=== PATIENT | male | born 1980 | race African-American/Black ===

== ENCOUNTER 2017-03-18 22:12 | Emergency (ER) | payer SELFPAY ==
[2017-03-18 22:34] VITALS: BP 132/62
[2017-03-18] MEDS ORDERED: ALBUTEROL SULFATE HFA (90 MCG/PUFF) 8 GM MDI (1 MDI/ER DISP) IH PRN (23:56)
--- NOTE | 2017-03-19 00:01 | ER Document Report ---
HPI - HPI Pain Level: Denies Notes: Patient is a 36-year-old male who presents ED complaining of nasal congestion/ discharge, occasional sore throat, dry nonproductive cough, occasional wheezing 3 days. Patient states that he is still eating and drinking without difficulties. He still urinating normally and having normal bowel movements. Patient does admit to smoking but denies IV drug use. Patient states that he is ambulatory without any trouble breathing. He has not noticed any trouble swallowing, hoarseness, or drooling. Denies any headache, fever, neck pain, chest pain, palpitations, syncope, shortness of breath, wheeze, dyspnea, abdominal pain, nausea/vomiting/diarrhea, dysuria, hematuria, or rash. - ROS Notes: REVIEW OF SYSTEMS: CONSTITUTIONAL : Denies fever, chills, or sweats. Denies recent illness. EENT: see HPI CARDIOVASCULAR: Denies chest pain. Denies palpitations or racing or irregular heart beat. Denies ankle edema. RESPIRATORY: See HPI. denies shortness of breath, difficulty breathing, or wheezing. GASTROINTESTINAL: Denies abdominal pain or distention. Denies nausea, vomiting , or diarrhea. GENITOURINARY: Denies difficulty urinating, painful urination, burning, frequency, blood in urine, or discharge. MUSCULOSKELETAL: Denies back or neck pain or stiffness. Denies joint pain or swelling. SKIN: Denies rash, lesions or sores. NEUROLOGICAL: Denies confusion or altered mental status. Denies passing out or loss of consciousness. Denies dizziness or lightheadedness. Denies headache. Denies problems with gait or speech. ALL OTHER SYSTEMS REVIEWED AND NEGATIVE. Dictation was performed using [employer] voice recognition software Past Medical History - Social History Smoking Status: Current Every Day Smoker Chew tobacco use (# tins/day): No Frequency of alcohol use: None Drug Abuse: None Family History: Reviewed & Not Pertinent Patient has suicidal ideation: No Patient has homicidal ideation: No Renal/ Medical History: Denies: Hx Peritoneal Dialysis Vertical Provider Document - CONSTITUTIONAL Agree With Documented VS: Yes Notes: PHYSICAL EXAMINATION: GENERAL: Well-appearing, well-nourished and in no acute distress. HEAD: Atraumatic, normocephalic. EYES: Pupils equal round and reactive to light, extraocular movements intact, sclera anicteric, conjunctiva are normal. ENT: EAC clear b/l. TM's intact b/l without erythema, fluid, or perforation. Nares patent and with clear discharge. oropharynx clear without exudates. No tonsilar hypertrophy or erythema. Moist mucous membranes. No sinus tenderness. NECK: Normal range of motion, supple without lymphadenopathy. no rigidity/ meningismus LUNGS: scant wheeze on the left side. no crackles. HEART: Regular rate and rhythm without murmurs, rubs, gallops. ABDOMEN: Soft, nontender, nondistended abdomen. No guarding, no rebound. No masses appreciated. Normal bowel sounds present. No CVA tenderness bilaterally. Extremities: No cyanosis, clubbing, or edema b/l. Peripheral pulses 2+. Capillary refill less than 3 seconds. NEUROLOGICAL: Normal speech, normal gait. Normal sensory, motor exams PSYCH: Normal mood, normal affect. SKIN: Warm, Dry, normal turgor, no rashes or lesions noted. - INFECTION CONTROL TRAVEL OUTSIDE OF THE [place] IN LAST 30 DAYS: No - RESPIRATORY O2 Sat by Pulse Oximetry: 97 Course - Re-evaluation Re-evalutation: 03/19/17 01:08 Patient is an afebrile, well-hydrated, 36-year-old male who presents the ED with acute URI, suspect viral at this time. Vitals are stable. PE is otherwise unremarkable. No imaging warranted at this time based on H&P. Low suspicion for any sepsis, meningitis, ACS, PE, pneumothorax, pericarditis, dissection, airway compromise, or other systemic emergent conditions. Patient aware that condition can change from initial presentation and he needs to monitor symptoms closely and seek medical attention if any acute changes. An albuterol inhaler was dispensed to him today. I will send him home with a prescription for Tessalon Perles. Conservative measures for symptoms otherwise. Recheck with your PCM in 3-5 days. Return to the ED with any worsening/concerning symptoms otherwise as reviewed in discharge. Patient is in agreement. - Vital Signs Vital signs: Temp Pulse Resp BP Pulse Ox 98.9 F 93 18 132/62 H 97 03/18/17 22:13 03/18/17 22:13 03/18/17 22:13 03/18/17 22:13 03/18/17 22:13 Discharge - Discharge Clinical Impression: Acute URI Condition: Stable Disposition: HOME, SELF-CARE Instructions: Bronchodilators ([facility]), Tessalon Perles ([facility]), Upper Respiratory Illness ([facility]) Additional Instructions: Maintain adequate fluid intake Take meds as directed tylenol/ibuprofen as needed over the counter cold medication as needed for symptoms Humidified air may help F/u: with your PCM in 3-5 days for a recheck Return to the ED with any fever, worsening pain, chest pain, palpitations, syncope, worsening PRYOR, neck pain/stiffness, shortness of breath, wheezing, drooling, trouble swallowing/breathing, abdominal pain, n/v/d, rash, or worsening/concerning symptoms otherwise. Prescriptions: Benzonatate [Tessalon Perle 100 mg Capsule] 100 mg PO Q8HP PRN #15 cap PRN Reason: Forms: Elevated Blood Pressure Referrals: [facility] [Provider Group] - Follow up as needed [facility] [Provider Group] - Follow up as needed
== END 2017-03-19 00:12 | disposition home or self-care (01) ==
LOC: ER 22:12
DX: J02.9 Acute pharyngitis, unspecified (principal); R05 Cough; J34.89 Other specified disorders of nose and nasal sinuses; R06.2 Wheezing; F17.200 Nicotine dependence, unspecified, uncomplicated
CPT/HCPCS: 99283; J3490

== ENCOUNTER 2017-04-09 11:49 | Emergency (ER) | payer SELFPAY ==
[2017-04-09 11:55] VITALS: BP 130/76
--- NOTE | 2017-04-09 12:28 | ER Document Report ---
ED General - General Chief Complaint: Abscess Stated Complaint: POSSIBLE ABCESS Time Seen by Provider: 04/09/17 12:26 Mode of Arrival: Ambulatory Information source: Patient Notes: Patient is a 36 year old male who presents with "bump" to his anterior chest that started 3-4 days ago. He denies any fever, chills, redness, drainage or bleeding from area. Does endorse mild swelling. He has not taken anything for pain. He denies any history of MRSA. Otherwise doing well. TRAVEL OUTSIDE OF THE [place] IN LAST 30 DAYS: No - Related Data Allergies/Adverse Reactions: No Known Allergies Allergy (Verified 04/09/17 11:52) Past Medical History - General Information source: Patient - Social History Smoking Status: Current Every Day Smoker Family History: Reviewed & Not Pertinent Renal/ Medical History: Denies: Hx Peritoneal Dialysis Review of Systems - Review of Systems Constitutional: See HPI EENT: No symptoms reported Cardiovascular: No symptoms reported Respiratory: No symptoms reported Gastrointestinal: No symptoms reported Genitourinary: No symptoms reported Male Genitourinary: No symptoms reported Musculoskeletal: No symptoms reported Skin: See HPI Hematologic/Lymphatic: No symptoms reported Neurological/Psychological: No symptoms reported Physical Exam - Vital signs Vitals: Temp Pulse Resp BP Pulse Ox 98.4 F 75 16 130/76 H 100 04/09/17 11:55 04/09/17 11:55 04/09/17 11:55 04/09/17 11:55 04/09/17 11:55 - Notes Notes: PHYSICAL EXAM: CONSTITUTIONAL: Alert and oriented, well-appearing and in no acute distress. Non -toxic in appearance. HENT: Normocephalic, atraumatic. Ear canals without erythema or foreign body, Trachea midline. Uvula midline. Moist mucous membranes. EYES: Pupils equal round and reactive to light, EOM intact. Sclera anicteric, conjunctiva are normal. No entrapment. NECK: supple without lymphadenopathy. No midline tenderness or paraspinous muscle spasms. No step-offs or deformities. ROM intact. HEART: Regular rate and rhythm without murmurs. LUNGS: CTAB and equal. No wheezes, rales or rhonchi. EXTREMITIES: Normal range of motion, no pitting edema. No cyanosis. Cap Refill < 3 seconds. NEURO: Cranial nerves grossly intact. Normal sensory/motor exams. PSYCH: Normal mood, normal affect. SKIN: Warm and dry. Normal turgor. No rashes or lesions noted. epidermoid cyst with visible central punctum to anterior chest wall with minimal surrounding edema, no erythema, drainage or bleeding noted. Course - Re-evaluation Re-evalutation: 04/09/17 12:27 Patient seen and examined. Non-toxic in appearance, speaking in full sentences without difficulty. Very well appearing. Exam consistent with epidermoid cyst with visible central punctum; no evidence of abscess or cellulitis. Will treat with supportive measures, given return precautions. Low suspicion for sepsis or other emergent medical conditions at this time. At this time, will discharge with return precautions and follow-up recommendations. Verbal discharge instructions given at the bedside and opportunity for questions given. Medication warnings reviewed. Patient is in agreement with this plan and has verbalized understanding of return precautions and the need for primary care follow-up in the next 24-72 hours. - Vital Signs Vital signs: Temp Pulse Resp BP Pulse Ox 98.4 F 75 16 130/76 H 100 04/09/17 11:55 04/09/17 11:55 04/09/17 11:55 04/09/17 11:55 04/09/17 11:55 Discharge - Discharge Clinical Impression: Epidermoid cyst Condition: Stable Disposition: HOME, SELF-CARE Additional Instructions: You have been diagnosed with epidermoid or sebaceous cyst. It does not appear to be inflammed or infected but you have been given short course of antibiotics. Take as directed. You can follow-up with your primary care doctor and if it continues to bother you, obtain referral to dermatology for removal. Prescriptions: Sulfamethoxazole/Trimethoprim [Bactrim Ds Tablet] 1 tab PO BID 7 Days tablet Forms: Elevated Blood Pressure
== END 2017-04-09 14:30 | disposition home or self-care (01) ==
LOC: ER 11:49
DX: L72.0 Epidermal cyst (principal); F17.200 Nicotine dependence, unspecified, uncomplicated
CPT/HCPCS: 99282

== ENCOUNTER 2017-09-10 21:26 | Emergency (ER) | payer SELFPAY ==
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
[2017-09-10] MEDS ORDERED: HYDROCODONE/ACETAMINOPHEN 5-325 MG (6 TAB/ER DISP) PO PRN (23:00)
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
[2017-09-10 23:45] VITALS: BP 114/74
== END 2017-09-10 23:45 | disposition home or self-care (01) ==
LOC: ER 21:26
DX: S62.324A Displaced fracture of shaft of fourth metacarpal bone, right hand, initial encounter for closed fracture (principal); W22.01XA Walked into wall, initial encounter
CPT/HCPCS: 99283

== ENCOUNTER 2017-09-23 09:24 | Day surgery (SDC) | payer SELFPAY ==
[2017-09-23] MEDS ORDERED: CEFAZOLIN 2 GM/D5W RTU 2 GM/50 ML RTUPB IV PRN (09:59)
[2017-09-23] MEDS ORDERED: MIDAZOLAM 2 MG/2 ML INJ ONE (11:42)
[2017-09-23] MEDS ORDERED: FENTANYL CITRATE INJ/PF 100 MCG/2 ML AMPUL ONE (11:42)
[2017-09-23] MEDS ORDERED: MORPHINE SULFATE 10 MG/ML INJ ONE ×2 (11:43→13:50)
[2017-09-23] MEDS ORDERED: ONDANSETRON HCL INJ/PF 4 MG/2 ML SDV ONE (11:43)
[2017-09-23] MEDS ORDERED: PROPOFOL INJ 200 MG/20 ML VIAL IV ONE (11:43)
[2017-09-23] MEDS ORDERED: PROMETHAZINE HCL INJ 25 MG/1 ML VIAL IV PRN (12:26)
[2017-09-23] MEDS ORDERED: MEPERIDINE HCL/PF INJ 25 MG/1 ML DISP.SYRIN IV PRN (12:26)
[2017-09-23] MEDS ORDERED: FENTANYL CITRATE INJ/PF 100 MCG/2 ML AMPUL IV PRN ×3 (12:26)
[2017-09-23] MEDS ORDERED: DIPHENHYDRAMINE HCL 50 MG/ML VIAL IV PRN (12:26)
--- NOTE | 2017-09-23 12:40 | Operative Report ---
Operative Report DATE OF SURGERY: 09/23/17 PREOPERATIVE DIAGNOSIS: Right fourth metacarpal fracture OPERATION: Open reduction internal fixation right fourth metacarpal fracture SURGEON: RENATE DEVRIES ANESTHESIA: GA ESTIMATED BLOOD LOSS: 25 cc PROCEDURE: With the patient supine Afrin table the right upper extremities prepped and draped in sterile fashion. A longitudinal incision is made over the dorsum of the right fourth metacarpal and sharp dissection was used to expose the underlying fracture. A Haresh titanium 2.3 mm 5 hole plate is applied to the dorsum of the metacarpal spanning the fracture. It secured with 2 screws distally and 2 screws proximally. Is checked fluoroscopically. Fracture is reduced anatomically. Hardware position is appropriate. This point the tourniquet is deflated. Hemostasis obtained with bipolar cautery. The wound is irrigated. Is closed in layers using interrupted Vicryl followed by Monocryl pill. Sterile dressings applied and the patient's return to PACU in satisfactory condition.
[2017-09-23] MEDS: FENTANYL CITRATE INJ/PF 100 MCG/2 ML AMPUL ONE ×2 (13:18→13:23)
[2017-09-23] MEDS ORDERED: KETOROLAC TROMETHAMINE INJ/PF 30 MG/1 ML SDV ONE (13:50)
--- NOTE | 2017-09-23 14:01 | RADIOLOGY REPORT (SQ) ---
EXAM DESCRIPTION: NO CHG FLUORO; HAND RIGHT 2 VIEWS COMPLETED DATE/TIME: 09/23/2017 1:53 pm REASON FOR STUDY: ORIF RT 4TH METACARPAL ASST WITH FLUORO IN OR S62.324A DISP FX OF SHAFT OF FOURTH METACARPAL BONE, RIGHT H COMPARISON: 09/10/2017. FLUOROSCOPY TIME: 7 seconds. 3 images saved to PACS. TECHNIQUE: Intra-operative images acquired during surgical procedure to evaluate progress. NUMBER OF IMAGES: 3 images. LIMITATIONS: None. FINDINGS: Images of the hand acquired during surgical fixation of the fracture of the 4th metacarpal . IMPRESSION: IMAGE(S) OBTAINED DURING PROCEDURE. COMMENT: Quality ID 145: Final reports for procedures using fluoroscopy that document radiation exp osure indices, or exposure time and number of fluorographic images (if radiation exposure indices are not available) Please consult full operative report of the attending physician for description of the procedure. TECHNICAL DOCUMENTATION: JOB ID: [id number] [employer]- All Rights Reserved Reading location - IP/workstation name: [email or web address]
--- NOTE | 2017-09-23 14:01 | RADIOLOGY REPORT (SQ) ---
EXAM DESCRIPTION: NO CHG FLUORO; HAND RIGHT 2 VIEWS COMPLETED DATE/TIME: 09/23/2017 1:53 pm REASON FOR STUDY: ORIF RT 4TH METACARPAL ASST WITH FLUORO IN OR S62.324A DISP FX OF SHAFT OF FOURTH METACARPAL BONE, RIGHT H COMPARISON: 09/10/2017. FLUOROSCOPY TIME: 7 seconds. 3 images saved to PACS. TECHNIQUE: Intra-operative images acquired during surgical procedure to evaluate progress. NUMBER OF IMAGES: 3 images. LIMITATIONS: None. FINDINGS: Images of the hand acquired during surgical fixation of the fracture of the 4th metacarpal . IMPRESSION: IMAGE(S) OBTAINED DURING PROCEDURE. COMMENT: Quality ID 145: Final reports for procedures using fluoroscopy that document radiation exp osure indices, or exposure time and number of fluorographic images (if radiation exposure indices are not available) Please consult full operative report of the attending physician for description of the procedure. TECHNICAL DOCUMENTATION: JOB ID: [id number] [employer]- All Rights Reserved Reading location - IP/workstation name: [email or web address]
[2017-09-23] MEDS ORDERED: ONDANSETRON 4 MG TAB.RAPDIS SL PRN (14:13)
[2017-09-23] MEDS ORDERED: OXYCODONE-ACETAMINOPHEN 5-325 MG TABLET PO PRN (14:13)
[2017-09-23 16:06] VITALS: BP 130/77
[2017-09-23] MEDS ORDERED: DEXAMETHASONE SOD PHOSPHATE INJ 4 MG/1 ML VIAL ONE (20:41)
[2017-09-23] MEDS ORDERED: LIDOCAINE 2% INJ-PF (20 MG/ML) 2 ML AMPUL ONE (20:41)
[2017-09-23] MEDS ORDERED: GLYCOPYRROLATE INJ 0.4 MG/2 ML VIAL ONE (20:41)
== END 2017-09-23 15:30 | disposition home or self-care (01) ==
LOC: OROUT 09:24
PROVIDERS: ATTEND Orthopaedic Surgery
DX: S62.324A Displaced fracture of shaft of fourth metacarpal bone, right hand, initial encounter for closed fracture (principal); X58.XXXA Exposure to other specified factors, initial encounter; F17.210 Nicotine dependence, cigarettes, uncomplicated; R01.1 Cardiac murmur, unspecified
CPT/HCPCS: 26615; 73120; J2250; J1100; J3010; J1885; J2270; J2405; J2704; J0690; J3490; 01830

== ENCOUNTER 2017-10-04 18:30 | Emergency (ER) | payer OTHER ==
[2017-10-04 18:42] VITALS: BP 120/89
[2017-10-04] MEDS ORDERED: IBUPROFEN 800 MG TABLET PO ONE (19:16)
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
== END 2017-10-04 20:00 | disposition home or self-care (01) ==
LOC: ER 18:30
DX: M54.6 Pain in thoracic spine (principal); M54.5 Low back pain; M79.89 Other specified soft tissue disorders; F17.210 Nicotine dependence, cigarettes, uncomplicated; V89.2XXA Person injured in unspecified motor-vehicle accident, traffic, initial encounter; Y99.9 Unspecified external cause status; I10 Essential (primary) hypertension
CPT/HCPCS: 72070; 72110; 99283; 99406

== ENCOUNTER 2018-12-26 16:54 | Emergency (ER) | payer OTHER ==
[2018-12-26] MEDS ORDERED: PSEUDOEPHEDRINE HCL 30 MG TABLET PO ONE (17:59)
[2018-12-26] MEDS ORDERED: LORATADINE 10 MG TABLET PO ONE (17:59)
[2018-12-26] MEDS ORDERED: GUAIFENESIN 600 MG TABLET.SA PO ONE (18:00)
--- NOTE | 2018-12-26 18:02 | ER Document Report ---
HPI - HPI Patient complains to provider of: cough congestion Time Seen by Provider: 12/26/18 17:56 Onset: Other Onset/Duration: Intermittent Quality of pain: Achy Pain Level: 2 Associated Symptoms: Nonproductive cough, Sinus pain/drainage, Shortness of breath, Sore throat Exacerbated by: Coughing Relieved by: Denies Similar symptoms previously: Yes Recently seen / treated by doctor: No - ROS ROS below otherwise negative: Yes - CONSTITUTIONAL Constitutional: DENIES: Fever, Chills - EENT EENT: REPORTS: Sore Throat, Nasal Drainage-Purulent - NEURO Neurology: REPORTS: Headache. DENIES: Weakness, Vision blurred, Dizzinesss / Vertigo - CARDIOVASCULAR Cardiovascular: DENIES: Chest pain - RESPIRATORY Respiratory: REPORTS: Coughing - GASTROINTESTINAL Gastrointestinal: DENIES: Abdominal Pain, Nausea, Patient vomiting, Diarrhea, Constipation, Black / Bloody Stools - URINARY Urinary: DENIES: Dysuria, Urgency, Frequency - REPRODUCTIVE Reproductive: DENIES: :, Postmenopausal, Abnormal bleeding / discharge - MUSCULOSKELETAL Musculoskeletal: DENIES: Extremity pain, Back Pain, Neck Pain, Swelling - DERM Skin Color: Normal Skin Problems: None Past Medical History - General Information source: Patient - Social History Smoking Status: Current Every Day Smoker Cigarette use (# per day): Yes - 25 cigarettes a day Smoking Education Provided: Yes - 4 minutes Frequency of alcohol use: Occasional Drug Abuse: Marijuana Occupation: [employer] Lives with: Family - Aunt Family History: Reviewed & Not Pertinent Patient has suicidal ideation: No Patient has homicidal ideation: No - Past Medical History Cardiac Medical History: Reports: Hx Heart Murmur - Repaired as a baby Pulmonary Medical History: Reports: None EENT Medical History: Reports: None Neurological Medical History: Reports: None Endocrine Medical History: Reports: None Renal/ Medical History: Reports: None Malignancy Medical History: Reports None GI Medical History: Reports: None Musculoskeletal Medical History: Reports Hx Musculoskeletal Trauma Skin Medical History: Reports None Psychiatric Medical History: Reports: None Traumatic Medical History: Reports: Hx Fractures - right hand Infectious Medical History: Reports: None Past Surgical History: Reports: Hx Cardiac Surgery - as child, Hx Orthopedic Surgery - right hand fx - Immunizations Immunizations up to date: Yes Hx Diphtheria, Pertussis, Tetanus Vaccination: Yes Vertical Provider Document - CONSTITUTIONAL Agree With Documented VS: Yes Exam Limitations: No Limitations General Appearance: WD/WN, No Apparent Distress - INFECTION CONTROL TRAVEL OUTSIDE OF THE [place] IN LAST 30 DAYS: No - HEENT HEENT: Atraumatic, Normocephalic, PERRLA Notes: Purulent nasal drainage, swollen and erythematous nasal turbinates, cobblestoning erythema to the oropharynx. Assessment consistent with an upper respiratory infection - NECK Neck: Normal Inspection, Supple - RESPIRATORY Respiratory: Breath Sounds Normal, No Respiratory Distress. negative: Chest Non-Tender, Rales, Rhonchi, Wheezing - CARDIOVASCULAR Cardiovascular: Regular Rate, Regular Rhythm, No Murmur - GI/ABDOMEN Gastrointestinal: Abdomen Soft, Abdomen Non-Tender, No Organomegaly, Normal Bowel Sounds - BACK Back: Normal Inspection - MUSCULOSKELETAL/EXTREMETIES Musculoskeletal/Extremeties: MAEW, FROM, Non-Tender - NEURO Level of Consciousness: Awake, Alert, Appropriate Motor/Sensory: No Motor Deficit, No Sensory Deficit, No Pronator Drift Deep Tendon Reflexes: 2+ - DERM Integumentary: Warm, Dry, No Rash Course - Re-evaluation Re-evalutation: 12/26/18 19:36 Discussed x-ray with patient and written report of x-ray given to patient. Patient was instructed to follow-up with a surgery nurse for the enlarged heart. There is no symptoms of CHF. There is no fluid in the lungs. He does have a cold and day after I gave him the instructions about the enlarged heart he did become very anxious when we rechecked his blood pressure was elevated. He has been told not to use Sudafed and Mucinex until he follows up with a surgery nurse. - Vital Signs Vital signs: Temp Pulse Resp BP Pulse Ox 98.7 F 80 18 120/72 96 12/26/18 17:01 12/26/18 17:01 12/26/18 17:01 12/26/18 17:01 12/26/18 17:01 - Diagnostic Test Radiology reviewed: Image reviewed, Reports reviewed Discharge - Discharge Clinical Impression: Acute URI Condition: Stable Disposition: HOME, SELF-CARE Additional Instructions: UPPER RESPIRATORY ILLNESS: You have a viral infection of the respiratory passages -- a "cold." This common infection causes nasal congestion, drainage, and often sore throat and cough. It is highly contagious. The disease usually lasts about 10 to 14 days. There is no "cure" for the viral infection -- it must run its course. If there is a complication, such as bacterial infection in the nose, sinuses, middle ear, or bronchial tubes, antibiotics may be required. The antibiotics won't affect the virus. Drink plenty of fluids. A humidifier may help. An expectorant medication or decongestant may make you more comfortable. Use acetaminophen or ibuprofen for fever or aches. See the doctor if fever persists over two days, if there is any significant worsening of your symptoms, or if you simply fail to improve as expected. COUGH-SUPPRESSANT & EXPECTORANT MEDICATION: You are to use a cough medication as needed for relief of symptoms. This medicine is a combination of an expectorant (to make the mucous thinner and more easily "coughed up") and a cough suppressant (to reduce the frequency of coughing). The cough-suppressant medicine is related to narcotics. You may experience mild nausea and sleepiness. Some patients who are very sensitive to narcotics may have stomach pain from this medicine. Taking the medicine with food reduces these side effects. Do not drive or work with machinery until you know how this medicine affects you. The expectorant should have no side effects. Iodine-containing expectorants (such as organidin) should not be taken by persons with active thyroid disease unless approved by your doctor. Call the doctor if you develop shortness of breath, hives, rash, itching, lightheadedness, or severe nausea and vomiting. USE OF ACETAMINOPHEN (Tylenol): Acetaminophen may be taken for pain relief or fever control. It's much safer than aspirin, offering a wider range of "safe" dosages. It is safe during . Some brand names are Tylenol, Panadol, Datril, Anacin 3, Tempra, and Liquiprin. Acetaminophen can be repeated every four hours. The following are maximum recommended dosages: >89 pounds or adults 650 mg to 900 mg Acetaminophen can be repeated every four hours. Maximum dose not to exceed 4000 mg a day. SMOKING: If you smoke, you should stop smoking. The tar and chemicals in cigarette smoke are harmful. Smoking has been shown to cause: emphysema chronic bronchitis lung cancer mouth and throat cancer stomach and pancreas cancer premature aging defects In addition, smoking increases ear and lung infections in children of smokers. Claritin 10 mg, Sudafed 30 mg, and Mucinex 600 mg in the ED for your cough cold congestion. Try not to use the Sudafed and Mucinex until you follow-up with a surgery nurse. You did have a benign enlargement of your heart. It does not show any swelling to the lungs so it is not CHF at this time. You can also use Flonase nasal spray for your nasal congestion. Salt and soda solution gargles will help with your sore throat. Salt and soda solution 1 quart of water 1 tablespoon of salt 1 teaspoon of baking soda Mixed 3 ingredients together and boil for 1 minute Placed in a covered quart jar Use 1/2 ounce of cold solution to gargle 3 times a day FOLLOW-UP CARE: If you have been referred to a physician for follow-up care, call the physicians office for an appointment as you were instructed or within the next two days. If you experience worsening or a significant change in your symptoms, notify the physician immediately or return to the Emergency Department at any time for re-evaluation. Forms: Smoking Cessation Education, Elevated Blood Pressure Referrals: MALLORY TURNER MD [ACTIVE STAFF] - Follow up as needed
--- NOTE | 2018-12-26 18:50 | RADIOLOGY REPORT (SQ) ---
EXAM DESCRIPTION: CHEST 2 VIEWS COMPLETED DATE/TIME: 12/26/2018 6:41 pm REASON FOR STUDY: cough congestion COMPARISON: None. EXAM PARAMETERS: NUMBER OF VIEWS: two views TECHNIQUE: Digital Frontal and Lateral radiographic views of the chest acquired. RADIATION DOSE: NA LIMITATIONS: none FINDINGS: LUNGS AND PLEURA: No opacities, masses or pneumothorax. No pleural effusion. MEDIASTINUM AND HILAR STRUCTURES: No masses or contour abnormalities. HEART AND VASCULAR STRUCTURES: Cardiomegaly status post median sternotomy. BONES: No acute findings. HARDWARE: None in the chest. OTHER: Metallic debris projects in the soft tissues of the right chest and back. IMPRESSION: Cardiomegaly without acute abnormality of the lungs. Metallic debris projects in the so ft tissues of the right chest and back. TECHNICAL DOCUMENTATION: JOB ID: [id number] [employer] All Rights Reserved Reading location - IP/workstation name: [email or web address]
[2018-12-26 19:34] VITALS: BP 131/96
== END 2018-12-26 19:35 | disposition home or self-care (01) ==
LOC: ER 16:54
DX: J06.9 Acute upper respiratory infection, unspecified (principal); R05 Cough; R09.81 Nasal congestion; R06.02 Shortness of breath; J02.9 Acute pharyngitis, unspecified; R51 Headache; R09.89 Other specified symptoms and signs involving the circulatory and respiratory systems; F17.210 Nicotine dependence, cigarettes, uncomplicated
CPT/HCPCS: 71046; 99283; 99406

== ENCOUNTER 2019-01-07 11:50 | Emergency (ER) | payer SELFPAY ==
[2019-01-07 11:55] VITALS: BP 134/82
--- NOTE | 2019-01-07 12:02 | ER Document Report ---
ED Medical Screen (RME) - General Chief Complaint: Chest Pain Stated Complaint: CHEST PAIN Time Seen by Provider: 01/07/19 12:01 Mode of Arrival: Ambulatory Information source: Patient Notes: 38-year-old male presents to the emergency department with left-sided chest pain that started at approximately 0930 this morning. He reports he was driving down the street when he lit a cigarette. He reports he took a couple puffs off a cigarette when it just did not feel right and he threw cigarette out. Then he noticed the chest pain. No other symptoms such as nausea vomiting diarrhea. Denies radiating pain. Denies shortness of breath. Reports history of heart murmur when he was younger and was told he had an enlarged heart last time he visited the emergency department last week. Reports he has started using the nicotine patch and he quit smoking pot. Denies history of cardiac disease. Denies family history of cardiac disease. I have greeted and performed a rapid initial assessment of this patient. A comprehensive ED assessment and evaluation of the patient, analysis of test results and completion of the medical decision making process will be conducted by additional ED providers. Dictation of this chart was performed using voice recognition software; therefore, there may be some unintended grammatical errors. TRAVEL OUTSIDE OF THE [place] IN LAST 30 DAYS: No - Related Data Allergies/Adverse Reactions: No Known Allergies Allergy (Verified 12/26/18 16:55) Past Medical History - Past Medical History Cardiac Medical History: Reports: Hx Heart Murmur - Repaired as a baby Denies: Hx Coronary Artery Disease, Hx Heart Attack, Hx Hypertension Pulmonary Medical History: Denies: Hx Asthma, Hx Bronchitis, Hx COPD, Hx Pneumonia Neurological Medical History: Denies: Hx Cerebrovascular Accident, Hx Seizures Renal/ Medical History: Denies: Hx Peritoneal Dialysis Musculoskeltal Medical History: Denies Hx Arthritis, Reports Hx Musculoskeletal Trauma Traumatic Medical History: Reports: Hx Fractures - right hand Past Surgical History: Reports: Hx Cardiac Surgery - as child, Hx Orthopedic Surgery - right hand fx - Immunizations Immunizations up to date: Yes Hx Diphtheria, Pertussis, Tetanus Vaccination: Yes History of Influenza Vaccine for 01/2017 - 06/2017 Season: No Physical Exam - Vital signs Vitals: Temp Pulse Resp BP Pulse Ox 98.3 F 83 17 134/82 H 97 01/07/19 11:51 01/07/19 11:51 01/07/19 11:51 01/07/19 11:51 01/07/19 11:51 Course - Vital Signs Vital signs: Temp Pulse Resp BP Pulse Ox 98.3 F 83 17 134/82 H 97 01/07/19 11:51 01/07/19 11:51 01/07/19 11:51 01/07/19 11:51 01/07/19 11:51
[2019-01-07] MEDS ORDERED: ASPIRIN 81 MG TABLET, CHEWABLE PO ONE (12:10)
[2019-01-07 12:46] LABS: ABSOLUTE BASOPHILS # (AUTO) 0.1 10^3/uL (0.0-0.2); ABSOLUTE EOSINOPHILS # (AUTO) 0.4 10^3/uL (0.0-0.6); ABSOLUTE LYMPHOCYTES (AUTO) 1.5 10^3/uL (0.5-4.7); ABSOLUTE MONOCYTES (AUTO) 0.4 10^3/uL (0.1-1.4); ABSOLUTE NEUT (AUTO) 4.7 10^3/uL (1.7-8.2); BASOPHILS % (AUTO) 1.2 % (0-2); EOSINOPHILS % (AUTO) 5.9 % (0-6); HEMATOCRIT 47.3 % (37.9-51.0); HEMOGLOBIN 15.8 g/dL (13.5-17.0); LYMPHOCYTES % (AUTO) 20.5 % (13-45); MEAN CORPUSCULAR HEMOGLOBIN 27.2 pg (27.0-33.4); MEAN CORPUSCULAR HGB CONC 33.5 g/dL (32.0-36.0); MEAN CORPUSCULAR VOLUME 81 fl (80-97); MONOCYTES % (AUTO) 5.9 % (3-13); PLATELET COUNT 291 10^3/uL (150-450); RED BLOOD COUNT 5.83 10^6/uL (4.35-5.55); RED CELL DISTRIBUTION WIDTH 14.6 % (11.5-14.0); SEGMENTED NEUTROPHILS % (AUTO) 66.5 % (42-78); TOTAL CELLS COUNTED % (AUTO) 100 %; WHITE BLOOD COUNT 7.1 10^3/uL (4.0-10.5)
--- NOTE | 2019-01-07 12:58 | RADIOLOGY REPORT (SQ) ---
EXAM DESCRIPTION: CHEST 2 VIEWS COMPLETED DATE/TIME: 01/07/2019 12:47 pm REASON FOR STUDY: cp COMPARISON: 12/26/2018 EXAM PARAMETERS: NUMBER OF VIEWS: two views TECHNIQUE: Digital Frontal and Lateral radiographic views of the chest acquired. RADIATION DOSE: NA LIMITATIONS: none FINDINGS: LUNGS AND PLEURA: No opacities, masses or pneumothorax. No pleural effusion. MEDIASTINUM AND HILAR STRUCTURES: No masses or contour abnormalities. HEART AND VASCULAR STRUCTURES: Heart size is stable. No failure. BONES: No acute findings. HARDWARE: Sternotomy wires are in place. OTHER: There is radiopaque foreign body in the soft tissues of the right upper back. This is unchang ed. IMPRESSION: NO ACUTE RADIOGRAPHIC FINDING IN THE CHEST. TECHNICAL DOCUMENTATION: JOB ID: [id number] [employer]- All Rights Reserved Reading location - IP/workstation name: [email or web address]
[2019-01-07 13:08] LABS: ALBUMIN 4.4 g/dL (3.5-5.0); ALKALINE PHOSPHATASE 61 U/L (38-126); ANION GAP 7 (5-19); ASPARTATE AMINO TRANSFERASE 160 U/L (17-59); BILIRUBIN,DIRECT 0.1 mg/dL (0.0-0.4); BILIRUBIN,TOTAL 0.7 mg/dL (0.2-1.3); BLOOD UREA NITROGEN 14 mg/dL (7-20); CALCIUM 9.6 mg/dL (8.4-10.2); CARBON DIOXIDE 29 mmol/L (22-30); CHLORIDE 102 mmol/L (98-107); GLUCOSE 140 mg/dL (75-110); TOTAL PROTEIN 7.6 g/dL (6.3-8.2)
[2019-01-07 13:20] LABS: CREATINE KINASE MB 3.81 ng/mL (<4.55)
[2019-01-07 13:21] LABS: TROPONIN I < 0.012 ng/mL
[2019-01-07 13:27] LABS: CREATINE KINASE 13839 U/L (55-170)
--- NOTE | 2019-01-07 14:15 | ER Document Report ---
ED General - General Chief Complaint: Chest Pain Stated Complaint: CHEST PAIN Time Seen by Provider: 01/07/19 12:01 Mode of Arrival: Ambulatory TRAVEL OUTSIDE OF THE [place] IN LAST 30 DAYS: No - HPI Notes: Patient is a 38-year-old male with no significant past medical history who p resents complaining of left-sided chest pain that feels like a tightening that began this morning about 5 hours ago. Patient states that he had similar symptoms a couple days ago that resolved on its own. Pain does not radiate. He is not aware of anything that worsens or improves his pain. He is urinating normally and having normal bowel movements. Patient states that he is no longer smoking marijuana and stopped 3 days ago, denies any other recreational drugs. He does smoke cigarettes. He is able to eat and drink without difficulty. Patient does not work out in the sun and denies any injury. Denies any prolonged immobilization, distance travel, recent surgery/trauma, personal cance r history, hormone use, or previous DVT/PE. Denies any headache, fever, neck pain, URI, sore throat, palpitations, syncope, cough, shortness of breath, wheeze, dyspnea, abdominal pain, nausea/vomiting/diarrhea, urinary retention, dysuria, hematuria, or rash. - Related Data Allergies/Adverse Reactions: No Known Allergies Allergy (Verified 12/26/18 16:55) Past Medical History - General Information source: Patient - Social History Smoking Status: Current Every Day Smoker Frequency of alcohol use: None Drug Abuse: None Family History: Reviewed & Not Pertinent Patient has suicidal ideation: No Patient has homicidal ideation: No - Past Medical History Cardiac Medical History: Reports: Hx Heart Murmur - Repaired as a baby Denies: Hx Coronary Artery Disease, Hx Heart Attack, Hx Hypertension Pulmonary Medical History: Denies: Hx Asthma, Hx Bronchitis, Hx COPD, Hx Pneumonia Neurological Medical History: Denies: Hx Cerebrovascular Accident, Hx Seizures Renal/ Medical History: Denies: Hx Peritoneal Dialysis Musculoskeletal Medical History: Denies Hx Arthritis, Reports Hx Musculoskeletal Trauma Traumatic Medical History: Reports: Hx Fractures - right hand Past Surgical History: Reports: Hx Cardiac Surgery - as child, Hx Orthopedic Surgery - right hand fx - Immunizations Immunizations up to date: Yes Hx Diphtheria, Pertussis, Tetanus Vaccination: Yes Review of Systems - Review of Systems -: Yes All other systems reviewed and negative Physical Exam - Vital signs Vitals: Temp Pulse Resp BP Pulse Ox 98.3 F 83 17 134/82 H 97 01/07/19 11:51 01/07/19 11:51 01/07/19 11:51 01/07/19 11:51 01/07/19 11:51 - Notes Notes: PHYSICAL EXAMINATION: GENERAL: Well-appearing, well-nourished and in no acute distress. HEAD: Atraumatic, normocephalic. EYES: Pupils equal round and reactive to light, extraocular movements intact, sclera anicteric, conjunctiva are normal. ENT: Nares patent and without discharge. oropharynx clear without exudates. No tonsilar hypertrophy or erythema. Moist mucous membranes. NECK: Normal range of motion, supple without lymphadenopathy LUNGS: Breath sounds clear to auscultation bilaterally and equal. No wheezes rales or rhonchi. HEART: Regular rate and rhythm without murmurs, rubs, gallops. ABDOMEN: Soft, nontender, nondistended abdomen. No guarding, no rebound. Normal bowel sounds present. No CVA tenderness bilaterally. Musculoskeletal: FROM to passive/active. Strength 5+/5. Tessie neg. No asymmetry to LE's. Extremities: No cyanosis, clubbing, or edema b/l. Peripheral pulses 2+. Capillary refill less than 3 seconds. NEUROLOGICAL: Normal speech, normal gait. PSYCH: Normal mood, normal affect. SKIN: Warm, Dry, normal turgor, no rashes or lesions noted. Course - Re-evaluation Re-evalutation: 01/07/19 14:[address] Tapia: He does not have any signs of dehydration and CKMB [place] [address], consider lab error. We will redraw his cardiac with 2nd trop. 01/07/19 17:20 I went to discuss lab results with the patient after reviewing again with Dr. Tapia, but pt appears to have eloped. Patient continues to have an elevated CK of approx 12,000 with an initial almost 29456. Pt is fit and muscular, suspect could be secondary to working out as he declines working outside and any other m isc drugs. The plan was to admit the patient for rehydration. He is otherwise surprisingly asymptomatic with normal renal function. Trop x2 negative. I did have the nurse contact the phone number on file, but was the number for a friend and not the patient. She then tried the [facility] who told her, Carmela, that she had to try and look his number up on facebook. We will attempt again in another hour or so. Reviewed with Dr. Tapia who is in agreement with plan at this time. - Vital Signs Vital signs: Temp Pulse Resp BP Pulse Ox 98.3 F 83 17 134/82 H 97 01/07/19 11:51 01/07/19 11:51 01/07/19 11:51 01/07/19 11:51 01/07/19 11:51 - Laboratory Result Diagrams: 01/07/19 12:15 01/07/19 12:15 Laboratory results interpreted by me: 01/07/19 01/07/19 01/07/19 12:15 12:15 15:29 RBC 5.83 H RDW 14.6 H Glucose 140 H AST 160 H Creatine Kinase 54972 H 30406 H Urine Blood Urine Urobilinogen 01/07/19 15:42 RBC RDW Glucose AST Creatine Kinase Urine Blood SMALL H Urine Urobilinogen 4.0 H Discharge - Discharge Clinical Impression: Elevated CK, Nonspecific chest pain Condition: Stable Disposition: ELOPED
[2019-01-07] MEDS ORDERED: NORMAL SALINE 1000 ML 1,000 ML IV PRN (14:23)
--- NOTE | 2019-01-07 15:06 | EKG REPORT ---
SEVERITY:- ABNORMAL ECG - SINUS RHYTHM INCOMPLETE RIGHT BUNDLE BRANCH BLOCK LA ABNORMALITY : Confirmed by: Santiago Galvan MD 07-Jan-2019 15:05:50
[2019-01-07 16:14] LABS: CREATINE KINASE MB 3.34 ng/mL (<4.55)
[2019-01-07 16:15] LABS: TROPONIN I < 0.012 ng/mL
[2019-01-07 16:17] LABS: APPEARANCE,URINE CLOUDY; BILIRUBIN,URINE NEGATIVE (NEGATIVE); COLOR,URINE YELLOW; GLUCOSE, URINE NEGATIVE (NEGATIVE); KETONES,URINE NEGATIVE (NEGATIVE); LEUKOCYTE ESTERASE,URINE NEGATIVE (NEGATIVE); NITRITE,URINE NEGATIVE (NEGATIVE); PROTEIN,URINE NEGATIVE (NEGATIVE); URINE SPECIFIC GRAVITY 1.025
[2019-01-07 16:32] LABS: URINE AMPHETAMINES SCREEN NEGATIVE; URINE BARBITURATES SCREEN NEGATIVE; URINE BENZODIAZEPINES SCREEN NEGATIVE; URINE COCAINE SCREEN NEGATIVE; URINE MARIJUANA (THC) SCREEN UNCONFIRMED POSITIVE; URINE METHADONE SCREEN NEGATIVE; URINE PHENCYCLIDINE SCREEN NEGATIVE
== END 2019-01-07 18:08 | disposition left against medical advice (07) ==
LOC: ER 11:50
DX: R74.8 Abnormal levels of other serum enzymes (principal); R07.9 Chest pain, unspecified; F17.210 Nicotine dependence, cigarettes, uncomplicated
CPT/HCPCS: 36415; 71046; 80053; 80307; 81001; 82550; 82553; 84484; 85025; 93005; 93010; 99281

== ENCOUNTER 2019-01-10 11:06 | Emergency (ER) | payer SELFPAY ==
--- NOTE | 2019-01-10 11:37 | ER Document Report ---
ED Medical Screen (RME) - General Stated Complaint: FOLLOW UP Time Seen by Provider: 01/10/19 11:31 Notes: Patient is a 38-year-old male presents to the emergency department for a follow-up. He was seen 3 days ago for chest pain and had a CK of 11,723. He ended up leaving the hospital and now is back. He has no specific complaints at this time. Denies any chest pain. Exam: S1, S2. I have greeted and performed a rapid initial assessment of this patient. A co mprehensive ED assessment and evaluation of the patient, analysis of test results and completion of medical decision making process will be conducted by an additional ED providers. TRAVEL OUTSIDE OF THE [place] IN LAST 30 DAYS: No - Related Data Allergies/Adverse Reactions: No Known Allergies Allergy (Verified 01/10/19 11:31) Past Medical History - Past Medical History Cardiac Medical History: Reports: Hx Heart Murmur - Repaired as a baby Denies: Hx Coronary Artery Disease, Hx Heart Attack, Hx Hypertension Pulmonary Medical History: Denies: Hx Asthma, Hx Bronchitis, Hx COPD, Hx Pneumonia Neurological Medical History: Denies: Hx Cerebrovascular Accident, Hx Seizures Renal/ Medical History: Denies: Hx Peritoneal Dialysis Musculoskeltal Medical History: Denies Hx Arthritis, Reports Hx Musculoskeletal Trauma Traumatic Medical History: Reports: Hx Fractures - right hand Past Surgical History: Reports: Hx Cardiac Surgery - as child, Hx Orthopedic Surgery - right hand fx - Immunizations Immunizations up to date: Yes Hx Diphtheria, Pertussis, Tetanus Vaccination: Yes History of Influenza Vaccine for 01/2017 - 06/2017 Season: No Physical Exam - Vital signs Vitals: Temp Pulse Resp BP Pulse Ox 98.3 F 75 18 122/74 98 01/10/19 11:21 01/10/19 11:21 01/10/19 11:21 01/10/19 11:21 01/10/19 11:21 Course - Vital Signs Vital signs: Temp Pulse Resp BP Pulse Ox 98.3 F 75 18 122/74 98 01/10/19 11:21 01/10/19 11:21 01/10/19 11:21 01/10/19 11:21 01/10/19 11:21
[2019-01-10] MEDS ORDERED: NORMAL SALINE 1000 ML 1,000 ML IV ONE (11:40)
--- NOTE | 2019-01-10 12:13 | ER Document Report ---
ED General - General Chief Complaint: Medical Clearance Stated Complaint: FOLLOW UP Time Seen by Provider: 01/10/19 11:31 TRAVEL OUTSIDE OF THE [place] IN LAST 30 DAYS: No - HPI Notes: Patient is a 38-year-old male with no significant past medical history aside from a heart murmur for lab reevaluation. I did see this patient a few days ago and he had a significant the elevated CK without any changes in labs or symptoms to note. Patient states that he is feeling well and he is eating and drinking without difficulty. He is urinating normally and having normal bowel movements. Patient states that he had one cramp to his abdomen yesterday, but no other cramps or discomfort. Patient states that he does lift weights and is taking protein supplementation. No other concerns or complaints. Denies drug allergies. Denies any headache, fever, neck pain, changes in vision/speech/mentation/hearing, URI, sore throat, chest pain, palpitations, syncope, cough, shortness of breath, wheeze, dyspnea, abdominal pain, nausea/vomiting/diarrhea, urinary retention, dysuria, hematuria, loss of control of bowel or bladder, numbness/tingling, saddle anesthesia, muscle paralysis/weakness, or rash. - Related Data Allergies/Adverse Reactions: No Known Allergies Allergy (Verified 01/10/19 11:31) Past Medical History - Social History Smoking Status: Former Smoker Family History: Reviewed & Not Pertinent Patient has suicidal ideation: No Patient has homicidal ideation: No - Past Medical History Cardiac Medical History: Reports: Hx Heart Murmur - Repaired as a baby Denies: Hx Coronary Artery Disease, Hx Heart Attack, Hx Hypertension Pulmonary Medical History: Denies: Hx Asthma, Hx Bronchitis, Hx COPD, Hx Pneumonia Neurological Medical History: Denies: Hx Cerebrovascular Accident, Hx Seizures Renal/ Medical History: Denies: Hx Peritoneal Dialysis Musculoskeletal Medical History: Denies Hx Arthritis, Reports Hx Musculoskeletal Trauma Traumatic Medical History: Reports: Hx Fractures - right hand Past Surgical History: Reports: Hx Cardiac Surgery - as child, Hx Orthopedic Surgery - right hand fx - Immunizations Immunizations up to date: Yes Hx Diphtheria, Pertussis, Tetanus Vaccination: Yes Review of Systems - Review of Systems -: Yes All other systems reviewed and negative Physical Exam - Vital signs Vitals: Temp Pulse Resp BP Pulse Ox 98.3 F 75 18 122/74 98 01/10/19 11:21 01/10/19 11:21 01/10/19 11:21 01/10/19 11:21 01/10/19 11:21 - Notes Notes: PHYSICAL EXAMINATION: GENERAL: Well-appearing, well-nourished and in no acute distress. HEAD: Atraumatic, normocephalic. EYES: Pupils equal round and reactive to light, extraocular movements intact, sclera anicteric, conjunctiva are normal. ENT: Nares patent and without discharge. oropharynx clear without exudates. No tonsilar hypertrophy or erythema. Moist mucous membranes. NECK: Normal range of motion, supple without lymphadenopathy LUNGS: Breath sounds clear to auscultation bilaterally and equal. No wheezes rales or rhonchi. HEART: Regular rate and rhythm without murmurs, rubs, gallops. ABDOMEN: Soft, nontender, nondistended abdomen. No guarding, no rebound. Normal bowel sounds present. No CVA tenderness bilaterally. Musculoskeletal: FROM to passive/active. Strength 5+/5. Tessie neg. No asymmetry to LE's. Extremities: No cyanosis, clubbing, or edema b/l. Peripheral pulses 2+. Capillary refill less than 3 seconds. NEUROLOGICAL: Normal speech, normal gait. PSYCH: Normal mood, normal affect. SKIN: Warm, Dry, normal turgor, no rashes or lesions noted. Course - Re-evaluation Re-evalutation: 01/10/19 13:[address] Tapia who agrees with dispo/plan: Patient is an afebrile, well-hydrated 38-year-old male who presents to the ED with elevated CK that is downtrending in an otherwise asymptomatic patient. Vitals are acceptable without any significant tachycardia, tachypnea, or hyp oxia. PE is otherwise unremarkable. Patient is nontoxic-appearing and is tolerating p.o. without any difficulties. Pt is currently asymptomatic. CBC, CMP, EKG/cardiac enzymes (aside from CK) are all unremarkable for any acute pathology. Patient does not have any chest pain, dyspnea, or shortness of breath. Patient's presentation and symptomatology creates low suspicion for ACS, PE, pneumothorax, pericarditis, dissection, respiratory compromise, severe dehydration, sepsis, meningitis, severe rhabdo, or other systemic emergent condition at this time. Patient is aware that his condition can change from initial presentation and he needs to monitor symptoms closely and seek medical attention for any acute changes. Patient to avoid prolonged exposure in sunlight, lifting, and protein segmentation for now. Push fluids. Recommend conservative measures for symptoms. Recheck with your PCM in 2-3 days. Consider consult with Cardiology. Return to the ED with any worsening/concerning sy mptoms otherwise as reviewed in discharge. Patient is in agreement. - Vital Signs Vital signs: Temp Pulse Resp BP Pulse Ox 98.3 F 75 18 122/74 98 01/10/19 11:21 01/10/19 11:21 01/10/19 11:21 01/10/19 11:21 01/10/19 11:21 - Laboratory Result Diagrams: 01/10/19 11:46 01/10/19 11:46 Laboratory results interpreted by me: 01/10/19 01/10/19 01/10/19 11:46 11:46 11:46 RBC 5.75 H MCH 26.8 L RDW 14.2 H AST 117 H Creatine Kinase 7244 H Urine Blood SMALL H Urine Urobilinogen 2.0 H Discharge - Discharge Clinical Impression: Elevated CK Condition: Stable Disposition: HOME, SELF-CARE Additional Instructions: Push fluid hydration Hold on your protein supplementation Avoid prolonged sunlight exposure Avoid any lifting for the next 1 to 2 weeks Monitor blood pressure daily and keep a log Monitor symptoms for any acute changes Recheck with your PCM in 2-3 days Consider a follow-up with cardiology Return to the ED with any worsening symptoms and/or development of fever, h eadache, chest pain, palpitations, syncope, shortness of breath, trouble breathing, abdominal pain, n/v/d, blood in stool/urine, loss of control of bowel/bladder, urinary retention, muscle weakness/paralysis, numbness/tingling, or other worsening symptoms that are concerning to you. Referrals: STACY OREILLY MD [ACTIVE STAFF] - Follow up as needed AMANDA CLARK MD [ACTIVE STAFF] - Follow up as needed
[2019-01-10 12:21] LABS: APPEARANCE,URINE SLIGHTLY-CLOUDY; BILIRUBIN,URINE NEGATIVE (NEGATIVE); COLOR,URINE YELLOW; GLUCOSE, URINE NEGATIVE (NEGATIVE); KETONES,URINE NEGATIVE (NEGATIVE); LEUKOCYTE ESTERASE,URINE NEGATIVE (NEGATIVE); NITRITE,URINE NEGATIVE (NEGATIVE); PROTEIN,URINE NEGATIVE (NEGATIVE); URINE SPECIFIC GRAVITY 1.028
[2019-01-10 12:22] LABS: ABSOLUTE BASOPHILS # (AUTO) 0.1 10^3/uL (0.0-0.2); ABSOLUTE EOSINOPHILS # (AUTO) 0.3 10^3/uL (0.0-0.6); ABSOLUTE LYMPHOCYTES (AUTO) 1.5 10^3/uL (0.5-4.7); ABSOLUTE MONOCYTES (AUTO) 0.4 10^3/uL (0.1-1.4); BASOPHILS % (AUTO) 1.2 % (0-2); EOSINOPHILS % (AUTO) 5.7 % (0-6); HEMATOCRIT 47.2 % (37.9-51.0); HEMOGLOBIN 15.4 g/dL (13.5-17.0); LYMPHOCYTES % (AUTO) 27.7 % (13-45); MEAN CORPUSCULAR HEMOGLOBIN 26.8 pg (27.0-33.4); MEAN CORPUSCULAR HGB CONC 32.6 g/dL (32.0-36.0); MEAN CORPUSCULAR VOLUME 82 fl (80-97); MONOCYTES % (AUTO) 7.9 % (3-13); PLATELET COUNT 275 10^3/uL (150-450); RED BLOOD COUNT 5.75 10^6/uL (4.35-5.55); RED CELL DISTRIBUTION WIDTH 14.2 % (11.5-14.0); SEGMENTED NEUTROPHILS % (AUTO) 57.5 % (42-78); TOTAL CELLS COUNTED % (AUTO) 100 %; WHITE BLOOD COUNT 5.3 10^3/uL (4.0-10.5)
[2019-01-10 12:34] LABS: ALBUMIN 4.1 g/dL (3.5-5.0); ALKALINE PHOSPHATASE 58 U/L (38-126); ANION GAP 8 (5-19); ASPARTATE AMINO TRANSFERASE 117 U/L (17-59); BILIRUBIN,DIRECT 0.2 mg/dL (0.0-0.4); BILIRUBIN,TOTAL 0.5 mg/dL (0.2-1.3); BLOOD UREA NITROGEN 15 mg/dL (7-20); CALCIUM 9.5 mg/dL (8.4-10.2); CARBON DIOXIDE 30 mmol/L (22-30); CHLORIDE 102 mmol/L (98-107); GLUCOSE 87 mg/dL (75-110); POTASSIUM 4.6 mmol/L (3.6-5.0); TOTAL PROTEIN 7.4 g/dL (6.3-8.2)
[2019-01-10 12:46] LABS: CREATINE KINASE MB 2.78 ng/mL (<4.55)
[2019-01-10 12:49] LABS: TROPONIN I < 0.012 ng/mL
[2019-01-10 12:58] LABS: CREATINE KINASE 7244 U/L (55-170)
[2019-01-10 13:23] VITALS: BP 124/70
--- NOTE | 2019-01-10 22:18 | EKG REPORT ---
SEVERITY:- ABNORMAL ECG - SINUS RHYTHM PROBABLE LEFT ATRIAL ABNORMALITY INCOMPLETE RIGHT BUNDLE BRANCH BLOCK : Confirmed by: Juancarlos Ruiz 10-Jan-2019 22:17:46
== END 2019-01-10 13:23 | disposition home or self-care (01) ==
LOC: ER 11:06
DX: R74.8 Abnormal levels of other serum enzymes (principal); R01.1 Cardiac murmur, unspecified; Z87.891 Personal history of nicotine dependence
CPT/HCPCS: 93005; 36415; 82553; 82550; 85025; 80053; 81001; 84484; 93010; J7030; 96360; 99282

== ENCOUNTER 2019-08-28 11:45 | Emergency (ER) | payer SELFPAY ==
[2019-08-28 12:03] VITALS: BP 139/94
[2019-08-28] MEDS ORDERED: PENICILLIN G BENZATHINE 1.2 MILLION UNIT/2 ML DISP.SYRIN IM ONE (12:14)
[2019-08-28] MEDS ORDERED: DEXAMETHASONE SOD PHOS INJ 10 MG/1 ML VIAL IM ONE (12:14)
--- NOTE | 2019-08-28 12:16 | ER Document Report ---
HPI - HPI Time Seen by Provider: 08/28/19 11:51 Pain Level: 4 Notes: 39-year-old male patient presented to the emergency department chief complaint of sore throat for the last 3 days. Patient denies any other symptoms. He has not had any fever. He has not had any recent travel. He is able to swallow although he states it is painful. - EENT EENT: REPORTS: Sore Throat - REPRODUCTIVE Reproductive: DENIES: : Past Medical History - General Information source: Patient - Social History Smoking Status: Current Every Day Smoker Frequency of alcohol use: None Drug Abuse: None Family History: Reviewed & Not Pertinent Patient has homicidal ideation: No - Past Medical History Cardiac Medical History: Reports: Hx Heart Murmur - Repaired as a baby Denies: Hx Coronary Artery Disease, Hx Heart Attack, Hx Hypertension Pulmonary Medical History: Denies: Hx Asthma, Hx Bronchitis, Hx COPD, Hx Pneumonia Neurological Medical History: Denies: Hx Cerebrovascular Accident, Hx Seizures Renal/ Medical History: Denies: Hx Peritoneal Dialysis Musculoskeletal Medical History: Denies Hx Arthritis, Reports Hx Musculoskeletal Trauma Traumatic Medical History: Reports: Hx Fractures - right hand Past Surgical History: Reports: Hx Cardiac Surgery - as child, Hx Orthopedic Surgery - right hand fx - Immunizations Immunizations up to date: Yes Hx Diphtheria, Pertussis, Tetanus Vaccination: Yes Vertical Provider Document - CONSTITUTIONAL Notes: PHYSICAL EXAMINATION: GENERAL: Well-appearing, well-nourished and in no acute distress. HEAD: Atraumatic, normocephalic. EYES: Pupils equal round extraocular movements intact, conjunctiva are normal. ENT: Mild tonsillar swelling noted, mild exudates noted, uvula midline, no obvious evidence of peritonsillar abscess. NECK: Normal range of motion LUNGS: No respiratory distress Musculoskeletal: Normal range of motion NEUROLOGICAL: Normal speech, normal gait. PSYCH: Normal mood, normal affect. SKIN: Warm, Dry, normal turgor, no rashes or lesions noted. - INFECTION CONTROL TRAVEL OUTSIDE OF THE [place] IN LAST 30 DAYS: No Course - Re-evaluation Re-evalutation: 08/28/19 12:17 Rapid strep positive. Patient will be given IM penicillin and IM Decadron will be discharged home in stable condition at this time. Strict ED return precautions discussed. - Vital Signs Vital signs: Temp Pulse Resp BP Pulse Ox 97.9 F 107 H 16 139/94 H 99 08/28/19 11:46 08/28/19 11:46 08/28/19 11:46 08/28/19 11:46 08/28/19 11:46 Discharge - Discharge Clinical Impression: Strep pharyngitis Condition: Stable Disposition: HOME, SELF-CARE Instructions: Strep Throat ([facility]) Additional Instructions: The rapid strep test came back positive for strep throat. You were given a dose of antibiotics and steroids here in the emergency department. There is no need for any prescriptions. Please take Tylenol or ibuprofen for pain. Drink plenty of liquids. Return to the emergency department with new or worsening symptoms to include difficulty breathing or difficulty swallowing. Forms: Return to Work
== END 2019-08-28 12:31 | disposition home or self-care (01) ==
LOC: ER 11:45
DX: J02.0 Streptococcal pharyngitis (principal); F17.200 Nicotine dependence, unspecified, uncomplicated
CPT/HCPCS: 99283; 96372; 87880; J0561; J1100

== ENCOUNTER 2019-12-14 15:15 | Emergency (ER) | payer SELFPAY ==
[2019-12-14 15:26] VITALS: BP 135/88
[2019-12-14] MEDS ORDERED: ACETAMINOPHEN 325 MG TABLET PO ONE (15:52)
--- NOTE | 2019-12-14 15:52 | ER Document Report ---
ED Medical Screen (RME) - General Chief Complaint: Abscess Stated Complaint: ABSCESS/RIGHT SIDE OF FACE Time Seen by Provider: 12/14/19 15:47 Mode of Arrival: Ambulatory Information source: Patient Notes: 39-year-old male presented to ED for abscess to the right side of his face just in front of his ear. He is alert oriented respirations regular nonlabored speaking in full sentences. He states the abscess is been there for about a week. He states he has been using alcohol and hot water to it it has not helped. He states the only past medical history is open heart surgery for a hole in his heart is). He states he does smoke a pack a day does not drink or use any drugs. He is alert oriented respirations regular nonlabored speaking in full sentences. I have greeted and performed a rapid initial assessment of this patient. A comprehensive ED assessment and evaluation of the patient, analysis of test results and completion of medical decision making process will be conducted by an additional ED providers. TRAVEL OUTSIDE OF THE [place] IN LAST 30 DAYS: No - Related Data Allergies/Adverse Reactions: No Known Allergies Allergy (Verified 01/10/19 11:31) Past Medical History - Past Medical History Cardiac Medical History: Reports: Hx Heart Murmur - Repaired as a baby Denies: Hx Coronary Artery Disease, Hx Heart Attack, Hx Hypertension Pulmonary Medical History: Denies: Hx Asthma, Hx Bronchitis, Hx COPD, Hx Pneumonia Neurological Medical History: Denies: Hx Cerebrovascular Accident, Hx Seizures Renal/ Medical History: Denies: Hx Peritoneal Dialysis Musculoskeltal Medical History: Denies Hx Arthritis, Reports Hx Musculoskeletal Trauma Traumatic Medical History: Reports: Hx Fractures - right hand Past Surgical History: Reports: Hx Cardiac Surgery - as child, Hx Orthopedic Surgery - right hand fx - Immunizations Immunizations up to date: Yes Hx Diphtheria, Pertussis, Tetanus Vaccination: Yes Physical Exam - Vital signs Vitals: Temp Pulse Resp BP Pulse Ox 98.2 F 81 16 135/88 H 99 12/14/19 15:25 12/14/19 15:25 12/14/19 15:25 12/14/19 15:25 12/14/19 15:25 Course - Vital Signs Vital signs: Temp Pulse Resp BP Pulse Ox 98.2 F 81 16 135/88 H 99 12/14/19 15:25 12/14/19 15:25 12/14/19 15:25 12/14/19 15:25 12/14/19 15:25 Doctor's Discharge - Discharge Disposition: EDDIE
== END 2019-12-14 17:39 | disposition left against medical advice (07) ==
LOC: ER 15:15
DX: Z53.20 Procedure and treatment not carried out because of patient's decision for unspecified reasons (principal); L02.01 Cutaneous abscess of face; F17.200 Nicotine dependence, unspecified, uncomplicated
CPT/HCPCS: 99284

== ENCOUNTER 2019-12-15 13:47 | Emergency (ER) | payer SELFPAY ==
[2019-12-15 13:53] VITALS: BP 134/81
[2019-12-15] MEDS ORDERED: SULFAMETHOXAZOLE/TRIMETHOPRIM 800-160 MG TABLET PO ONE (13:56)
[2019-12-15] MEDS ORDERED: IBUPROFEN 800 MG TABLET PO ONE (13:56)
--- NOTE | 2019-12-15 14:01 | ER Document Report ---
HPI - HPI Patient complains to provider of: Skin infection Time Seen by Provider: 12/15/19 13:54 Onset: Last week Onset/Duration: Worse Quality of pain: Achy Pain Level: 5 Context: Patient complains of abscess to the right side of face for the past week. Patient denies any history of MRSA. Patient denies any fever. Associated Symptoms: Other - Facial abscess Exacerbated by: Denies Relieved by: Denies Similar symptoms previously: No Recently seen / treated by doctor: No - ROS ROS below otherwise negative: Yes Systems Reviewed and Negative: Yes All other systems reviewed and negative - CONSTITUTIONAL Constitutional: DENIES: Fever, Chills - GASTROINTESTINAL Gastrointestinal: DENIES: Nausea - DERM Skin Color: Normal Notes: Abscess to right side of face Past Medical History - General Information source: Patient - Social History Smoking Status: Current Every Day Smoker Frequency of alcohol use: None Drug Abuse: None Occupation: None Family History: Reviewed & Not Pertinent - Past Medical History Cardiac Medical History: Reports: Hx Heart Murmur - Repaired as a baby Pulmonary Medical History: Denies: Hx Asthma, Hx Bronchitis, Hx COPD, Hx Pneumonia Neurological Medical History: Denies: Hx Cerebrovascular Accident, Hx Seizures Renal/ Medical History: Denies: Hx Peritoneal Dialysis Musculoskeletal Medical History: Denies Hx Arthritis, Reports Hx Musculoskeletal Trauma Traumatic Medical History: Reports: Hx Fractures - right hand Past Surgical History: Reports: Hx Cardiac Surgery - as child, Hx Orthopedic Surgery - right hand fx - Immunizations Immunizations up to date: Yes Hx Diphtheria, Pertussis, Tetanus Vaccination: Yes Vertical Provider Document - CONSTITUTIONAL Agree With Documented VS: Yes Exam Limitations: No Limitations General Appearance: WD/WN, No Apparent Distress - INFECTION CONTROL TRAVEL OUTSIDE OF THE [place] IN LAST 30 DAYS: No - HEENT HEENT: Atraumatic, Normocephalic Notes: Patient with 1.5 cm abscess just anterior to right ear - NECK Neck: Normal Inspection, Supple. negative: Lymphadenopathy-Left, Lymphadenopathy-Right - RESPIRATORY Respiratory: Breath Sounds Normal, No Respiratory Distress - CARDIOVASCULAR Cardiovascular: Regular Rate, Regular Rhythm - MUSCULOSKELETAL/EXTREMETIES Musculoskeletal/Extremeties: MAEW - NEURO Level of Consciousness: Awake, Alert, Appropriate Motor/Sensory: No Motor Deficit - DERM Integumentary: Warm, Dry, Abscess - 1.5 cm abscess anterior to right ear, area is fluctuant, no surrounding erythema Course - Vital Signs Vital signs: Temp Pulse Resp BP Pulse Ox 98.2 F 87 18 134/81 H 95 12/15/19 13:51 12/15/19 13:51 12/15/19 13:51 12/15/19 13:51 12/15/19 13:51 Procedures - Incision and Drainage Right Face Type: Simple Anesthetic type: 1% Lidocaine Blade size: 11 I&D procedure: Betadine prep applied Incision Method: Incision made by scalpel Amount/type of drainage: Large amount of purulent drainage from abscess to right side of face Adult Head Front/Back picture: 1 - abscess Discharge - Discharge Clinical Impression: Facial abscess, Encounter for incision and drainage procedure Condition: Stable Disposition: HOME, SELF-CARE Instructions: Abscess ([facility]), Post Incision and Drainage, Trimethoprim-Sulfa ([facility]) Additional Instructions: Return immediately for any new or worsening symptoms Followup with your primary care provider, call tomorrow to make a followup appointment Referrals: [facility] [Provider Group] - Follow up as needed
== END 2019-12-15 14:51 | disposition home or self-care (01) ==
LOC: ER 13:47
PROC: 0H91XZZ Drainage of Face Skin, External Approach (ICD-10-PCS; principal; 2019-12-15)
DX: L02.01 Cutaneous abscess of face (principal); Z86.14 Personal history of Methicillin resistant Staphylococcus aureus infection; F17.200 Nicotine dependence, unspecified, uncomplicated
CPT/HCPCS: 99283